=== PATIENT | male | born 1960 | race Caucasian/White ===

== ENCOUNTER 2024-07-30 07:13 | Day surgery (SDC) | payer MEDICAID ==
[~2024-07-30] VITALS: Ht 180.3 cm; Wt 84.1 kg
[~2024-07-30 07:13] MED LIST: ASPI-1444 PO; BUPR-113 PO; FLUT16H NASAL; GABA-529 PO; HYDR200T76 PO; LEVO175T9 PO; LOSA-381 PO; OMEP40CA21 PO
[2024-07-30] MEDS ORDERED: BENZOCAINE 20% 50 MCG/SPRAY 57 GM TP ONE (07:14)
[2024-07-30] MEDS ORDERED: LIDOCAINE 4% 50 ML SOLUTION TP ONE (07:14)
[2024-07-30] MEDS ORDERED: LIDOCAINE 2% 11 ML JELLY TP ONE (07:14)
[2024-07-30] MEDS ORDERED: SODIUM CHLORIDE 0.9% 1,000 ML ONE (07:32)
[2024-07-30] MEDS: SODIUM CHLORIDE 0.9% 1,000 ML IV ONE (08:01)
[2024-07-30] MEDS ORDERED: MIDAZOLAM HCL 2 MG/2 ML VIAL ONE (08:20)
[2024-07-30] MEDS ORDERED: FentaNYL CITRATE PF 100 MCG/2 ML VIAL ONE (08:20)
[2024-07-30 09:43] VITALS: PULSE 53; RESP 18; O2SAT 100
[2024-07-30] MEDS ORDERED: MethylPREDNISolone SOD SUCC 125 MG/2 ML VIAL ONE (09:46)
[2024-07-30] MEDS: MethylPREDNISolone SOD SUCC 125 MG/2 ML VIAL IVP ONE (10:30)
== END 2024-07-30 12:10 | disposition home or self-care (01) ==
LOC: SURGERY 07:13
PROVIDERS: ATTEND Internal Medicine Critical Care Medicine
DX: R05.3 Chronic cough (principal); R06.2 Wheezing; R49.0 Dysphonia; R04.2 Hemoptysis; R91.8 Other nonspecific abnormal finding of lung field; J38.4 Edema of larynx; B37.0 Candidal stomatitis; I10 Essential (primary) hypertension; E03.9 Hypothyroidism, unspecified; Z90.49 Acquired absence of other specified parts of digestive tract
CPT/HCPCS: 31623; 87206; 87101; 87220; 87070; 88108; 31624; 71045; 87015; J3010; J2250; J2919; J7030; Z7610